=== PATIENT | female | born 2000 | race Two or more races ===

== ENCOUNTER 2024-06-17 11:11 | Emergency (ER) | payer MEDICAID, OTHER ==
[~2024-06-17] VITALS: Ht 162.6 cm; Wt 50.2 kg
[2024-06-17 11:51] LABS: Urine Bacteria None Seen /hpf (None Seen)
[2024-06-17 12:20] LABS: Urine Blood Negative /uL (Negative); Urine Clarity Clear (Clear); Urine Color Light-Yellow (Yellow); Urine Protein, UAD Negative (Negative); Urine Specific Gravity 1.017 (1.001-1.035); Urine Urobilinogen Normal (Negative); Urine WBC 10 /hpf (0 - 5); Urine pH 5.5 (5.0-9.0)
[2024-06-17 13:02] VITALS: BP 107/78; PULSE 104; RESP 16; TEMP 99; O2SAT 99
[2024-06-17] MEDS ORDERED: NITR-87 PO (13:31)
[2024-06-17] MEDS ORDERED: DOXY-286 PO (13:31)
[2024-06-17] MEDS: cefTRIAXone SOD 1,000 MG VL IM ONE (14:04)
== END 2024-06-17 13:31 | disposition home or self-care (01) ==
LOC: ER 11:11
DX: N39.0 Urinary tract infection, site not specified (principal); A64 Unspecified sexually transmitted disease; Z32.02 Encounter for pregnancy test, result negative
CPT/HCPCS: 81001; 81025; 96372; 99283; J0696